=== PATIENT | male | born 1965 | race Caucasian/White ===

== ENCOUNTER 2021-08-08 19:16 | Inpatient (IN) | payer MEDICARE, MEDICAID ==
[~2021-08-08] VITALS: Ht 175.3 cm; Wt 95.4 kg
[2021-08-08] MEDS ORDERED: MORPHINE SULFATE 4 MG/ML, 1ML ONE (19:29)
[2021-08-08] MEDS ORDERED: ONDANSETRON 2MG/ML, 2ML ONE (19:29)
[2021-08-08] MEDS ORDERED: MORPHINE SULFATE 4 MG/ML, 1ML IVPush PRN (19:30)
[2021-08-08] MEDS ORDERED: SODIUM CHLORIDE 0.9% 1,000ML IVBOLUS ONE (19:30)
[2021-08-08] MEDS ORDERED: ONDANSETRON 2MG/ML, 2ML IVPush ONE (19:30)
[2021-08-08] MEDS ORDERED: PIPERACILLIN/TAZO 3.375 GM in DEXTROSE 5% 50 ML IVPB ONE (19:30)
[2021-08-08] MEDS ORDERED: SODIUM CHLORIDE FLUSH 10ML SYR IVF ONE (19:30)
--- NOTE | 2021-08-08 19:38 | NUR ---
PT ARRIVED VIA [facility] TO ROOM 10. PT A&OX4 AND APPEARS TREMULOUS ON ARRIVAL. PT TRANSFERRED FROM [facility] FOR POSSIBLE KIDNEY STONES NEEDING SURGERY. PT HAS AN INTACT AIRWAY, GOOD AERATION AND OXYGENATION. PT HAS A 20G PIV TO RIGHT HAND, FLUSHES EASY. MD TO BEDSIDE TO EVAL PT, AND REVIEW PAPERWORK FROM TRANSFER. ORDERS RECEIVED, AND PT MEDICATED FOR PAIN AND NAUSEA, AND [employer] CALLED TO ROOM TO DRAW BLOOD CULTURES PRIOR TO STARTING ANTIBIOTICS. PT TOLERATING ALL PROCEDURES, AND IS ON CR MONITOR. REMAINS ON O2 NC 3LPM FROM TRANSPORT FOR COMFORT.
--- NOTE | 2021-08-08 19:54 | NUR ---
ALL BLOOD WORK COMPLETED AND DRAWN. ANTIBIOTICS HUNG, AND PT TAKEN TO CT.
[2021-08-08 20:02] LABS: MEAN CORPUSCULAR HEMOGLOBIN 28.3 pg (27.5-34.5); MEAN CORPUSCULAR HGB CONC 32.3 g/dL (33.2-36.2); MEAN PLATELET VOLUME 8.9 fL (7.4-10.4); RED BLOOD COUNT 4.63 x10^6/uL (4.38-5.82); RED CELL DISTRIBUTION WIDTH 16.2 % (9.4-14.8)
[2021-08-08 20:14] LABS: ALANINE AMINOTRANSFERASE 59 U/L (12-78); ALBUMIN 2.6 g/dL (3.4-5.0); ANION GAP 7 mmol/L (5-15); CALCIUM 7.2 mg/dL (8.5-10.1); CHLORIDE 108 mmol/L (98-107); CREATININE 0.74 mg/dL (0.7-1.3)
[2021-08-08 20:16] LABS: ALKALINE PHOSPHATASE 116 U/L (45-117); BILIRUBIN,TOTAL 0.7 mg/dL (0.2-1.0); TOTAL PROTEIN 6.8 g/dL (6.4-8.2)
--- NOTE | 2021-08-08 20:16 | NUR ---
PT BACK FROM CT SCAN. NO ACUTE DISTRESS, NO COMPLAINTS OF PAIN OR NAUSEA AT THIS TIME.
--- NOTE | 2021-08-08 20:29 | NUR ---
PT ADVISED OF STRICT NPO STATUS, AND IS AWARE AND REQUESTED IT IN CASE PT NEEDS TO GO TO SURGERY FOR THE KIDNEY STONES. PT UNDERSTANDS AND IS OKAY WITH THAT. LAST PO INTAKE FOR PT WAS A HALF CUP OF WATER AT 1930.
[2021-08-08 20:47] LABS: PLATELET COUNT 13 x10^3/uL (130-400)
[2021-08-08 20:56] LABS: BAND#(MANUAL) 0.06 x10^3/uL; BANDS%(MANUAL) 3 % (0-7); LYMPH#(MANUAL) 0.28 x10^3/uL (1-3.4); LYMPHS% (MANUAL) 14 % (22-44); MONOS#(MANUAL) 0.12 x10^3/uL (0.3-2.7); MONOS% (MANUAL) 6 % (2-9); SEG#(MANUAL) 1.54 x10^3/uL (1.8-6.8); SEGS% (MANUAL) 77 % (42-75)
[2021-08-08 20:57] LABS: <PLATELET ESTIMATE> DECREASED; <PLT MORPHOLOGY> QNS FOR PLT MORPH; <RBC MORPHOLOGY> NORMAL
--- NOTE | 2021-08-08 21:40 | NUR ---
PT SLEEPING. NADN. VSS.
[2021-08-08] MEDS ORDERED: MELATONIN 5 MG TABLET PO PRN (22:00)
[2021-08-08] MEDS ORDERED: PHARMACY MAY ADJ FOR RENAL FX MC PRN (22:00)
[2021-08-08] MEDS ORDERED: LORazepam 2 MG/ML, 1ML IV PRN (22:00)
[2021-08-08] MEDS ORDERED: ACETAMINOPHEN 325 MG TABLET PO PRN (22:00)
[2021-08-08] MEDS ORDERED: LORazepam 1MG TABLET PO PRN (22:00)
[2021-08-08] MEDS ORDERED: HYDROmorphone 2 MG/ML, 1ML IVPush PRN (22:00)
[2021-08-08] MEDS ORDERED: POLYETHYLENE GLYCOL 17 GM PACKET PO PRN (22:00)
[2021-08-08 22:24] LABS: MEAN CORPUSCULAR HEMOGLOBIN 29.1 pg (27.5-34.5); MEAN PLATELET VOLUME 9.3 fL (7.4-10.4); RED BLOOD COUNT 4.47 x10^6/uL (4.38-5.82); RED CELL DISTRIBUTION WIDTH 16.2 % (9.4-14.8)
[2021-08-08 22:29] LABS: PLATELET COUNT 11 x10^3/uL (130-400)
[2021-08-08] MEDS: LACTATED RINGERS 1,000 ML IV SCH (23:16)
[2021-08-08] MEDS: PIPERACILLIN/TAZO 3.375 GM in DEXTROSE 5% 50 ML IVPB SCH (23:16)
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
[2021-08-08 23:20] LABS: <PLATELET ESTIMATE> DECREASED; <PLT MORPHOLOGY> QNS FOR PLT MORPH; <RBC MORPHOLOGY> NORMAL; BAND#(MANUAL) 0.06 x10^3/uL; BANDS%(MANUAL) 3 % (0-7); LYMPH#(MANUAL) 0.23 x10^3/uL (1-3.4); LYMPHS% (MANUAL) 11 % (22-44); MONOS#(MANUAL) 0.23 x10^3/uL (0.3-2.7); MONOS% (MANUAL) 11 % (2-9); SEG#(MANUAL) 1.58 x10^3/uL (1.8-6.8); SEGS% (MANUAL) 75 % (42-75)
[2021-08-09] VITALS (13 sets, daily range): BP systolic 105–132; BP diastolic 68–83
[2021-08-09] MEDS ORDERED: LORazepam 0.5MG TABLET ONE (00:01)
[2021-08-09] MEDS: POTASSIUM CHLORIDE 20 MEQ, MAGNESIUM SULFATE 1 GM, FOLIC ACID 1 MG, THIAMINE 200 MG, MV... IV SCH ×2 (00:06→21:03)
[2021-08-09] MEDS: LORazepam 0.5MG TABLET PO PRN (00:07)
--- NOTE | 2021-08-09 00:20 | NUR ---
UNABLE TO LOCATE PLATELETS FOR PT. NOTIFIED BLOOD BANK AND WILL CONTINUE TO LOOK FOR THEM.
--- NOTE | 2021-08-09 00:40 | NUR ---
PLATELETS LOCATED AND TO BE ADMINISTERED.
[2021-08-09] MEDS: LORazepam 2 MG/ML, 1ML IV PRN ×7 (01:31→22:18)
[2021-08-09] MEDS: PIPERACILLIN/TAZO 3.375 GM in DEXTROSE 5% 50 ML IVPB SCH ×3 (05:50→22:18)
[2021-08-09 07:53] LABS: MEAN CORPUSCULAR HEMOGLOBIN 28.4 pg (27.5-34.5); MEAN CORPUSCULAR HGB CONC 32.4 g/dL (33.2-36.2); MEAN PLATELET VOLUME 8.3 fL (7.4-10.4); RED BLOOD COUNT 4.31 x10^6/uL (4.38-5.82)
[2021-08-09 07:56] LABS: ANION GAP 6 mmol/L (5-15); CALCIUM 7.1 mg/dL (8.5-10.1); CHLORIDE 108 mmol/L (98-107)
[2021-08-09 07:57] LABS: CREATININE 0.86 mg/dL (0.7-1.3)
[2021-08-09] MEDS: LACTATED RINGERS 1,000 ML IV SCH ×2 (08:15→23:00)
[2021-08-09 08:45] LABS: PLATELET COUNT 21 x10^3/uL (130-400)
[2021-08-09 08:48] LABS: <PLATELET ESTIMATE> DECREASED; <PLT MORPHOLOGY> NORMAL PLT MORPH; <RBC MORPHOLOGY> NORMAL; LYMPH#(MANUAL) 0.35 x10^3/uL (1-3.4); LYMPHS% (MANUAL) 22 % (22-44); MONOS#(MANUAL) 0.14 x10^3/uL (0.3-2.7); MONOS% (MANUAL) 9 % (2-9); SEGS% (MANUAL) 69 % (42-75)
[2021-08-09] MEDS: ONDANSETRON 2MG/ML, 2ML IVPush PRN (23:49)
[2021-08-10] MEDS: LORazepam 2 MG/ML, 1ML IV PRN ×5 (00:48→10:02)
[2021-08-10 02:14] VITALS: BP 97/64
[2021-08-10] MEDS: PIPERACILLIN/TAZO 3.375 GM in DEXTROSE 5% 50 ML IVPB SCH ×3 (06:03→20:15)
[2021-08-10 07:43] LABS: MEAN CORPUSCULAR HEMOGLOBIN 28.5 pg (27.5-34.5); MEAN CORPUSCULAR HGB CONC 32.2 g/dL (33.2-36.2); MEAN PLATELET VOLUME 7.7 fL (7.4-10.4); RED BLOOD COUNT 4.45 x10^6/uL (4.38-5.82); RED CELL DISTRIBUTION WIDTH 15.9 % (9.4-14.8)
[2021-08-10 07:47] LABS: PLATELET COUNT 24 x10^3/uL (130-400)
[2021-08-10 08:11] VITALS: BP 113/72
[2021-08-10] MEDS: OXYcodone IR 5MG TABLET PO PRN ×2 (08:24→20:14)
[2021-08-10 08:33] LABS: LYMPH#(MANUAL) 0.31 x10^3/uL (1-3.4); LYMPHS% (MANUAL) 24 % (22-44)
[2021-08-10 08:38] LABS: BAND#(MANUAL) 0.08 x10^3/uL; BANDS%(MANUAL) 6 % (0-7); EOS#(MANUAL) 0.01 x10^3/uL (0.0-0.4); EOS% (MANUAL) 1 % (1-7); MONOS% (MANUAL) 15 % (2-9); REACTIVE LYMPHS # (MANUAL) 0.01 x10^3/uL (0-0); REACTIVE LYMPHS % (MANUAL) 1 % (0-0); SEG#(MANUAL) 0.69 x10^3/uL (1.8-6.8); SEGS% (MANUAL) 53 % (42-75)
[2021-08-10 08:40] LABS: <PLATELET ESTIMATE> DECREASED; <PLT MORPHOLOGY> NORMAL PLT MORPH; <RBC MORPHOLOGY> NORMAL
[2021-08-10] MEDS: LACTATED RINGERS 1,000 ML IV SCH ×2 (11:57→19:07)
[2021-08-10] MEDS: LORazepam 0.5MG TABLET PO PRN ×2 (14:09→20:14)
[2021-08-10 14:10] VITALS: BP 101/65
[2021-08-10 18:57] VITALS: BP 145/85
[2021-08-11] MEDS: LORazepam 0.5MG TABLET PO PRN (00:12)
[2021-08-11] MEDS: OXYcodone IR 5MG TABLET PO PRN (00:12)
[2021-08-11 00:15] VITALS: BP 117/74
[2021-08-11] MEDS: ONDANSETRON 2MG/ML, 2ML IVPush PRN (01:59)
[2021-08-11 04:25] LABS: MEAN CORPUSCULAR HEMOGLOBIN 28.6 pg (27.5-34.5); MEAN CORPUSCULAR HGB CONC 32.5 g/dL (33.2-36.2); MEAN PLATELET VOLUME 9.4 fL (7.4-10.4); RED CELL DISTRIBUTION WIDTH 16.2 % (9.4-14.8)
[2021-08-11 04:32] LABS: PLATELET COUNT 25 x10^3/uL (130-400)
[2021-08-11 04:34] LABS: ANION GAP 8 mmol/L (5-15); CALCIUM 7.4 mg/dL (8.5-10.1); CHLORIDE 107 mmol/L (98-107)
[2021-08-11 04:36] LABS: CREATININE 0.68 mg/dL (0.7-1.3)
[2021-08-11] MEDS: PIPERACILLIN/TAZO 3.375 GM in DEXTROSE 5% 50 ML IVPB SCH (04:45)
[2021-08-11 06:03] LABS: <PLATELET ESTIMATE> DECREASED; <PLT MORPHOLOGY> NORMAL PLT MORPH; <RBC MORPHOLOGY> NORMAL; BAND#(MANUAL) 0.15 x10^3/uL; BANDS%(MANUAL) 7 % (0-7); EOS#(MANUAL) 0.04 x10^3/uL (0.0-0.4); EOS% (MANUAL) 2 % (1-7); LYMPH#(MANUAL) 0.37 x10^3/uL (1-3.4); LYMPHS% (MANUAL) 17 % (22-44); MONOS#(MANUAL) 0.24 x10^3/uL (0.3-2.7); MONOS% (MANUAL) 11 % (2-9); REACTIVE LYMPHS # (MANUAL) 0.07 x10^3/uL (0-0); REACTIVE LYMPHS % (MANUAL) 3 % (0-0); SEG#(MANUAL) 1.32 x10^3/uL (1.8-6.8); SEGS% (MANUAL) 60 % (42-75)
[2021-08-11] MEDS ORDERED: POTASSIUM CHLORIDE 20 MEQ TAB.ER.PRT PO ONE (11:00)
[2021-08-11 13:21] VITALS: BP 133/66
== END 2021-08-11 14:00 | disposition left against medical advice (07) | DRG 871 ==
LOC: ED 19:45 → EDIP 22:01 → 4WST 08-09 01:16
PROVIDERS: ADMIT Internal Medicine; ATTEND Hospitalist
PROC: 30233R1 Transfusion of Nonautologous Platelets into Peripheral Vein, Percutaneous Approach (ICD-10-PCS; principal; 2021-08-09)
DX: A41.89 Other specified sepsis (principal); U07.1 COVID-19; K85.90 Acute pancreatitis without necrosis or infection, unspecified; N13.6 Pyonephrosis; K86.1 Other chronic pancreatitis; D61.818 Other pancytopenia; D69.3 Immune thrombocytopenic purpura; N20.2 Calculus of kidney with calculus of ureter; D69.59 Other secondary thrombocytopenia; E11.9 Type 2 diabetes mellitus without complications; F19.10 Other psychoactive substance abuse, uncomplicated; F10.20 Alcohol dependence, uncomplicated; E87.6 Hypokalemia; I10 Essential (primary) hypertension; K76.0 Fatty (change of) liver, not elsewhere classified; K76.89 Other specified diseases of liver; K80.20 Calculus of gallbladder without cholecystitis without obstruction; M48.061 Spinal stenosis, lumbar region without neurogenic claudication; F17.210 Nicotine dependence, cigarettes, uncomplicated; M51.25 Other intervertebral disc displacement, thoracolumbar region; Z53.29 Procedure and treatment not carried out because of patient's decision for other reasons; M51.26 Other intervertebral disc displacement, lumbar region; Z87.442 Personal history of urinary calculi
CPT/HCPCS: 36415; 36430; 74176; 80048; 80053; 83605; 83690; 83735; 84145; 85025; 85049; 86850; 86900; 87040; 87635; 96374; 96375; 99291; G0378; J2405; J2543; J3411; J3475; J3480; J2060; J2270; J7030; J7120; J7121; P9035